=== PATIENT | male | born 1990 | race Hispanic/Latino ===

== ENCOUNTER 2020-01-12 01:47 | Emergency (ER) | payer BC ==
[2020-01-12] MEDS ORDERED: KETOROLAC 30 MG/ML INJ ONE (02:39)
[2020-01-12 03:03] LABS: Urine Bacteria <20 /HPF (NONE SEEN); Urine Culture Reflex Order NOT NEEDED; Urine RBC >50 /HPF (NONE SEEN)
[2020-01-12 03:03] LABS: Absolute Lymphocytes (CBC) 3.1 K/uL (0.7-4.9); Basophils % 0.3 % (0-1.3); Hematocrit 46.1 % (39.6-49.0); Lymphocytes % 25.2 % (15.3-44.8); MPV 8.4 fL (7.6-11.3); RBC Red Blood Cell Count 5.54 M/uL (4.33-5.43)
[2020-01-12 03:04] LABS: Urine Blood 3+ (NEG); Urine Glucose NEGATIVE (NEG); Urine Protein 1+ (NEG); Urine Specific Gravity >1.030 (1.005-1.030)
[2020-01-12 03:04] LABS: Urine Volume 2.5 ML
[2020-01-12 03:12] LABS: Bilirubin Direct 0.2 mg/dL (0-0.2); Bilirubin Total 0.6 mg/dL (0.2-1.0); Potassium 3.4 mmol/L (3.5-5.1); Protein, Total 7.4 g/dL (6.4-8.2)
--- NOTE | 2020-01-12 03:33 | ER ---
Nurse's Notes [facility] Name: Milady Blanc Age: 29 yrs Sex: Male : 1990 Arrival Date: 01/12/2020 Time: 01:49 Bed 13 Private MD: Diagnosis: Calculus of ureter Presentation: 01/11 01:58 Chief complaint: Patient states: Reports he woke up with right lower back pain, reports ea he took a hydrocodone before coming in. Coronavirus screen: Patient denies fever greater than 100.4F, cough, shortness of breath, or difficulty breathing. Ebola Screen: No symptoms or risks identified at this time. Initial Sepsis Screen: Does the patient meet any 2 criteria? No. Patient's initial sepsis screen is negative. Does the patient have a suspected source of infection? No. Patient's initial sepsis screen is negative. Risk Assessment: Do you want to hurt yourself or someone else? Patient reports no desire to harm self or others. 01:58 Method Of Arrival: Ambulatory ea 01:58 Acuity: JAYCEE 3 ea - Immunization history:: Adult Immunizations up to date. - Social history:: Smoking status: Patient denies any tobacco usage or history of. Screenin:02 Abuse screen: Denies threats or abuse. Nutritional screening: No deficits noted. ea Tuberculosis screening: No symptoms or risk factors identified. Fall Risk None identified. Assessment: 02:05 General: Appears in no apparent distress. Behavior is calm, cooperative. Pain: ea Complains of pain in right low back. Neuro: Level of Consciousness is awake, alert, obeys commands, Oriented to person, place, time. Respiratory: Airway is patent Respiratory effort is even, unlabored, Respiratory pattern is regular. Derm: Skin is pink, warm \T\ dry. 03:46 Reassessment: Patient and/or family updated on plan of care and expected duration. Pain ea level reassessed. Patient is alert, oriented x 3, equal unlabored respirations, skin warm/dry/pink. Discharge instruction given to patient, verbalized the understanding of instruction. Pt left ED ambulatory accompanied by . Vital Signs: 01:58 BP 145 / 97; Pulse 90; Resp 18; Temp 98; Pulse Ox 100% ; Weight 90.72 kg; Height 6 ft. ea 1 in. (185.42 cm); 03:19 BP 121 / 70; Pulse 70; Resp 18; Pulse Ox 100% on R/A; ea 01:58 Body Mass Index 26.39 (90.72 kg, 185.42 cm) ea ED Course: 01:49 Patient arrived in ED. ds1 02:02 Triage completed. ea 02:03 Patient has correct armband on for positive identification. Bed in low position. Call ea light in reach. 02:04 Patient placed in an exam room, on a stretcher, on pulse oximetry. ea 02:16 Kareem Natarajan MD is Attending Physician. tw4 02:[address] via wheelchair. sg 02:40 Initial lab(s) drawn, by me, sent to lab. Inserted saline lock: 20 gauge in right sg antecubital area, using aseptic technique. Blood collected. 03:00 CT Abd/Pelvis - Without Contrast In Process Unspecified. EDMS 03:16 Jacqueline Gonzales RN is Primary Nurse. ea 03:48 No provider procedures requiring assistance completed. IV discontinued, intact, ea bleeding controlled, No redness/swelling at site. Pressure dressing applied. Administered Medications: 02:40 Drug: TORadol 30 mg Route: IVP; Site: right antecubital; sg 03:00 Follow up: Response: No adverse reaction; Pain is decreased ea 03:42 Drug: morphine 2 mg Route: IVP; Site: right antecubital; ea 03:53 Follow up: Response: Pain is decreased ea Outcome: 03:33 Discharge ordered by . tw4 03:49 Discharged to home ambulatory, with family. ea 03:49 Condition: stable 03:49 Instructed on discharge instructions, follow up and referral plans. medication usage, Demonstrated understanding of instructions, follow-up care, medications, Prescriptions given X 4. 03:54 Patient left the ED. ea Signatures: Dispatcher [employer] EDMS Alexandro Fierro RN RN sg Sanford, Demi ds1 Jacqueline Gonzales RN RN ea Wadley, Terrence, MD MD tw4
--- NOTE | 2020-01-12 03:33 | EDPHYS ---
Physician Documentation [facility] Name: Milady Blanc Age: 29 yrs Sex: Male : 1990 Arrival Date: 01/12/2020 Time: 01:49 Bed 13 Private MD: ED Physician Kareem Natarajan HPI: 01/11 03:28 This 29 yrs old Male presents to ER via Ambulatory with complaints of Back tw4 Pain. 03:28 The patient presents with pain that is acute, with no known mechanism of injury. The tw4 symptoms are located in the low back. Onset: The symptoms/episode began/occurred today. The pain does not radiate. Associated signs and symptoms: The patient has no apparent associated signs or symptoms. The problem was sustained from unknown cause. Severity of symptoms: At their worst the symptoms were moderate, in the emergency department the symptoms are unchanged. - Immunization history:: Adult Immunizations up to date. - Social history:: Smoking status: Patient denies any tobacco usage or history of. ROS: 03:28 Constitutional: Negative for fever, chills, and weight loss, Eyes: Negative for injury, tw4 pain, redness, and discharge, Cardiovascular: Negative for chest pain, palpitations, and edema, Respiratory: Negative for shortness of breath, cough, wheezing, and pleuritic chest pain, Abdomen/GI: Negative for abdominal pain, nausea, vomiting, diarrhea, and constipation, MS/Extremity: Negative for injury and deformity, Skin: Negative for injury, rash, and discoloration, Neuro: Negative for headache, weakness, numbness, tingling, and seizure. 03:28 Back: Positive for flank pain. Exam: 03:28 Constitutional: This is a well developed, well nourished patient who is awake, alert, tw4 and in no acute distress. Head/Face: Normocephalic, atraumatic. Chest/axilla: Normal chest wall appearance and motion. Nontender with no deformity. No lesions are appreciated. Cardiovascular: Regular rate and rhythm with a normal S1 and S2. No gallops, murmurs, or rubs. Normal PMI, no JVD. No pulse deficits. Respiratory: Lungs have equal breath sounds bilaterally, clear to auscultation and percussion. No rales, rhonchi or wheezes noted. No increased work of breathing, no retractions or nasal flaring. Abdomen/GI: Soft, non-tender, with normal bowel sounds. No distension or tympany. No guarding or rebound. No evidence of tenderness throughout. MS/ Extremity: Pulses equal, no cyanosis. Neurovascular intact. Full, normal range of motion. Neuro: Awake and alert, GCS 15, oriented to person, place, time, and situation. Cranial nerves II-XII grossly intact. Motor strength 5/5 in all extremities. Sensory grossly intact. Cerebellar exam normal. Normal gait. 03:28 Back: pain, that is moderate, ROM is normal, normal spinal alignment noted, CVA tenderness, that is moderate, is noted on the left. Vital Signs: 01:58 BP 145 / 97; Pulse 90; Resp 18; Temp 98; Pulse Ox 100% ; Weight 90.72 kg; Height 6 ft. ea 1 in. (185.42 cm); 03:19 BP 121 / 70; Pulse 70; Resp 18; Pulse Ox 100% on R/A; ea 01:58 Body Mass Index 26.39 (90.72 kg, 185.42 cm) ea MDM: 02:16 Patient medically screened. tw4 03:28 Data reviewed: vital signs, nurses notes. Data interpreted: Pulse oximetry: tw4 Interpretation: normal. Counseling: I had a detailed discussion with the patient and/or guardian regarding: the historical points, exam findings, and any diagnostic results supporting the discharge/admit diagnosis. Special discussion: I discussed with the patient/guardian in detail that at this point there is no indication for admission to the hospital. It is understood, however, that if the symptoms persist or worsen the patient needs to return immediately for re-evaluation. 03:31 Data reviewed: lab test result(s), CBC, electrolytes, hepatic panel, urinalysis, tw4 hematuria, radiologic studies, CT scan. Medication response: Toradol relieved patient's pain. The symptoms have resolved. Response to treatment: and as a result, I will discharge patient, administer pain medication, acetaminophen, ibuprofen. 01/11 02:28 Order name: Basic Metabolic Panel; Complete Time: 03:30 tw4 01/11 03:31 Interpretation: Normal except: CL 109; GFR 79; K 3.4. tw4 01/11 02:28 Order name: CBC with Diff; Complete Time: 03:30 tw4 01/11 03:30 Interpretation: Normal except: RBC 5.54; WBC 12.4. 01/11 02:28 Order name: Creatinine for Radiology; Complete Time: 03:30 4 01/11 03:31 Interpretation: Within normal limits: CRE 1.06. 01/11 02:28 Order name: Hepatic Function; Complete Time: 03:30 4 01/11 03:31 Interpretation: Within normal limits. 01/11 02:28 Order name: Lipase; Complete Time: 03:30 4 01/11 03:31 Interpretation: Within normal limits: LIP 175. 01/11 02:28 Order name: Urine Microscopic Only; Complete Time: 03:30 4 01/11 03:31 Interpretation: Normal except: URBC >50. 01/11 02:28 Order name: IV Saline Lock; Complete Time: 02:44 [facility] 01/11 02:28 Order name: Labs collected and sent; Complete Time: 02:44 [facility] 01/11 02:28 Order name: Urine Dipstick-Ancillary (obtain specimen); Complete Time: 03:53 [facility] 01/11 02:32 Order name: CT Abd/Pelvis - Without Contrast [facility] 01/11 02:40 Order name: Urine Dipstick--Ancillary (enter results); Complete Time: 03:30 nd 01/11 03:31 Interpretation: Normal except: USPGR >1.030; UKET 2+; UBLD 3+; UPROT 1+. tw4 Administered Medications: 02:40 Drug: TORadol 30 mg Route: IVP; Site: right antecubital; sg 03:00 Follow up: Response: No adverse reaction; Pain is decreased ea 03:42 Drug: morphine 2 mg Route: IVP; Site: right antecubital; ea 03:53 Follow up: Response: Pain is decreased ea Disposition: 01/12/20 03:33 Discharged to Home. Impression: Calculus of ureter. - Condition is Stable. - Discharge Instructions: Renal Colic, Kidney Stones, [id number]. - Prescriptions for Ibuprofen 800 mg Oral Tablet - take 1 tablet by ORAL route every 8 hours As needed take with food; 30 tablet. Tylenol- Codeine #3 300-30 mg Oral Tablet - take 2 tablet by ORAL route every 6 hours As needed; 30 tablet. Zofran 4 mg Oral Tablet - take 1 tablet by ORAL route every 12 hours As needed; 6 tablet. Flomax 0.4 mg Oral Capsule, Sust. Release 24 hr - take 1 capsule by ORAL route once daily 1/2 hour following the same meal each day; 30 capsule. - Medication Reconciliation Form, Thank You Letter, Antibiotic Education, Prescription Opioid Use form. - Follow up: Private Physician; When: Upon discharge from the Emergency Department; Reason: Recheck today's complaints, Continuance of care, Re-evaluation by your physician. - Problem is new. - Symptoms have improved. Signatures: Dispatcher [employer] EDMS Alexandro Fierro RN RN Jacqueline Lopes RN RN Kareem Goodwin MD MD tw4 Corrections: (The following items were deleted from the chart) 03:31 03:30 Normal except: CL 109; GFR 79. tw4 tw4 03:33 03:33 01/12/2020 03:33 Discharged to Home. Impression: Calculus of kidney with calculus tw4 of ureter. Condition is Stable. Forms are Medication Reconciliation Form, Thank You Letter, Antibiotic Education, Prescription Opioid Use. Follow up: Private Physician; When: Upon discharge from the Emergency Department; Reason: Recheck today's complaints, Continuance of care, Re-evaluation by your physician. Problem is new. Symptoms have improved. tw4 03:54 03:33 01/12/2020 03:33 Discharged to Home. Impression: Calculus of ureter. Condition is ea Stable. Forms are Medication Reconciliation Form, Thank You Letter, Antibiotic Education, Prescription Opioid Use. Follow up: Private Physician; When: Upon discharge from the Emergency Department; Reason: Recheck today's complaints, Continuance of care, Re-evaluation by your physician. Problem is new. Symptoms have improved. tw4
[2020-01-12] MEDS ORDERED: MORPHINE 2 MG/ML SYR ONE (03:45)
[2020-01-12 04:08] VITALS: BP 121/70; TEMP 98; O2SAT 100
--- NOTE | 2020-01-12 10:21 | RAD REPORT ---
EXAM DESCRIPTION: Abdomen Pelvis Wo Contrast CLINICAL HISTORY: FLANK PAIN COMPARISON: None. TECHNIQUE: CT ABDOMEN PELVIS WITHOUT IV CONTRAST on 01/12/2020 2:32 AM CDT This exam was performed according to our departmental dose-optimization program, which includes autom ated exposure control, adjustment of the mA and/or kV according to patient size and/or use of iterati ve reconstruction technique. FINDINGS: Lower lungs are clear. Abdomen: The liver is normal in appearance. There is no biliary dilatation. Gallbladder is normal in appearance. There are postoperative changes of the stomach. The pancreas and spleen are normal in yuniel earance. Adrenal glands and left kidney are normal. There is mild right hydronephrosis secondary to a 3 mm right UVJ calculus. Abdominal aorta is normal in course and caliber without aneurysm. There is no free air. There is no r etroperitoneal adenopathy. Pelvis: There is no bowel obstruction. Urinary bladder is unremarkable. There is no free fluid. Appen satya is not well seen. Skeleton: There are no acute osseous findings. No suspicious bony lesions. IMPRESSION: Mildly obstructing 3 mm right UVJ calculus. Electronically signed by: Rodriguez Funez MD 01/12/2020 3:03 AM CDT Due to temporary technical issues with the PACS/Fluency reporting system, reports are being signed by the in house radiologist as a courtesy to ensure prompt reporting. The interpreting radiologist is f ully responsible for the content of the report.
== END 2020-01-12 03:54 | disposition home or self-care (01) ==
LOC: ER 01:47
DX: N20.1 Calculus of ureter (principal)
CPT/HCPCS: 85025; 80048; 36415; 80076; 83690; 74176; 96375; 96374; 99284; J2270; 81003; 81015